=== PATIENT | male | born 1960 | race Caucasian/White ===

== ENCOUNTER → 2016-06-07 | Outpatient (CLI) | payer MEDICARE, MEDICAID ==
[~2016-06-07] MED LIST: APRESOLINE25 MG PO; APRESOLINE50 MG PO; ASPIRIN (CHILDR81 MG PO; ASPIRIN325 MG PO; BUMETANIDE2 MG PO; BUMEX1 MG PO; CATAPRES0.1 MG PO; COLACE100 MG PO; EYE DROPS15 M1 OPHTH; FERGON325 M1 PO; GLUCOPHAGE500 MG PO; IMDUR30 MG PO; IMDUR60 MG PO; Imdur PO; LANTUS (IN100 UNIT/M SUB-Q; LANTUS SOL100 UNIT/1 SUB-Q; LOPRESSOR50 MG PO; NEURONTIN300 MG PO; NITROSTAT0.4 MG SL; NORCO 5-325 MG1 TAB PO; NORCO 5-325 TA1 EACH PO; NORVASC10 MG PO; OMEPRAZOLE20 MG PO; PHOSLO667 MG PO; PLAVIX75 MG PO; PRAVASTATIN SOD10 MG PO; REFRESH TEARS15 ML OPHTH; TOPROL XL 5050 MG PO; TRANDATE OR NO100 MG PO; TYLENOL325 MG PO; VIGAMOX (MOX3 ML/BOT OPHTH; ZAROXOLYN2.5 MG PO; ZAROXOLYN5 MG PO; ZOLOFT100 MG PO
== END | disposition disaster alternative care site (69) ==
LOC: GRAD 14:03
PROC: 05PY33Z Removal of Infusion Device from Upper Vein, Percutaneous Approach (ICD-10-PCS; principal; 2016-06-07)
DX: Z45.2 Encounter for adjustment and management of vascular access device (principal)

== ENCOUNTER → 2016-06-28 | Outpatient (CLI) | payer MEDICARE, MEDICAID | END | disposition disaster alternative care site (69) | LOC: GAMB 09:45 | DX: I95.9 Hypotension, unspecified (principal); R42 Dizziness and giddiness; R69 Illness, unspecified | CPT/HCPCS: A0425; A0429 ==

== ENCOUNTER → 2016-07-30 | Outpatient (CLI) | payer MEDICARE, MEDICAID | END | disposition disaster alternative care site (69) | LOC: GRAD 14:56 | DX: M54.2 Cervicalgia (principal); M47.892 Other spondylosis, cervical region ==

== ENCOUNTER → 2016-08-09 | Outpatient (CLI) | payer MEDICARE, MEDICAID | END | disposition disaster alternative care site (69) | LOC: GRAD 08-07 09:00 | DX: M54.2 Cervicalgia (principal); M47.892 Other spondylosis, cervical region; M48.02 Spinal stenosis, cervical region ==